=== PATIENT | female | born 1990 | race Caucasian/White ===

== ENCOUNTER 2016-11-25 22:36 | Emergency (ER) | payer OTHER ==
--- NOTE | 2016-11-25 22:55 | PDOC ---
History of Present Illness - General History Source: Patient Exam Limitations: No Limitations - History of Present Illness Initial Comments: 11/25/16 23:39 The patient is a 26 year old female and presenting with her family, with no significant past medical history, who presents to the emergency department with generalized weakness and shortness of breath. She notes that her friend 1 week ago from meningitis (11/19/2016) and is afraid that she may have been exposed to bacterial meningitis. She denies any other kind of symptoms. The patient denies chest pain, shortness of breath, headache and dizziness. Denies fever, chills, nausea, vomit, diarrhea and constipation. Denies dysuria, frequency, urgency and hematuria. Allergies: Peanuts Past surgical history: None reported Social history: Alcohol use. Cigarette use and marijuana use <Fernando Christianson - Last Filed: 11/25/16 23:39> <Jennifer Salguero - Last Filed: 11/26/16 00:25> - General Chief Complaint: Weakness Stated Complaint: WEAKNESS Time Seen by Provider: 11/25/16 22:54 Past History <Fernando Christianson - Last Filed: 11/25/16 23:39> <Jennifer Salguero - Last Filed: 11/26/16 00:25> - Past Medical History Allergies/Adverse Reactions: Allergies Allergy/AdvReac Type Severity Reaction Status Date / Time peanut Allergy Verified 11/25/16 22:56 Home Medications: Ambulatory Orders Ciprofloxacin/Ciprofloxa HCl [Cipro Xr 500 mg Tablet] 500 mg PO ONCE 11/25/16 Review of Systems - Review of Systems Able to Perform ROS?: Yes Comments:: 11/25/16 23:40 GENERAL/CONSTITUTIONAL: +Generalized weakness. No fever or chills HEAD, EYES, EARS, NOSE AND THROAT: No change in vision. No ear pain or discharge. No sore throat. CARDIOVASCULAR: +Shortness of breath. No chest pain RESPIRATORY: No cough, wheezing, or hemoptysis. GASTROINTESTINAL: No nausea, vomiting, diarrhea or constipation. GENITOURINARY: No dysuria, frequency, or change in urination. MUSCULOSKELETAL: No joint or muscle swelling or pain. No neck or back pain. SKIN: No rash NEUROLOGIC: No headache, vertigo, loss of consciousness, or change in strength/ sensation. ENDOCRINE: No increased thirst. No abnormal weight change HEMATOLOGIC/LYMPHATIC: No anemia, easy bleeding, or history of blood clots. ALLERGIC/IMMUNOLOGIC: No hives or skin allergy. <BraxtonFernando murphy Elizabeth - Last Filed: 11/25/16 23:39> *Physical Exam - Vital Signs Last Vital Signs Temp Pulse Resp BP Pulse Ox 97.9 F 76 16 124/80 100 11/25/16 22:54 11/25/16 22:54 11/25/16 22:54 11/25/16 22:54 11/25/16 22:54 - Physical Exam Comments: 11/25/16 23:40 GENERAL: Awake, alert, and fully oriented, in no acute distress HEAD: No signs of trauma, normocephalic, atraumatic EYES: PERRLA, EOMI, sclera anicteric, conjunctiva clear ENT: Auricles normal inspection, hearing grossly normal, nares patent, oropharynx clear without exudates. Moist mucosa NECK: Normal ROM, supple, no lymphadenopathy, JVD, or masses LUNGS: No distress, speaks full sentences, clear to auscultation bilaterally HEART: Regular rate and rhythm, normal S1 and S2, no murmurs, rubs or gallops, peripheral pulses normal and equal bilaterally. ABDOMEN: Soft, nontender, normoactive bowel sounds. No guarding, no rebound. No masses EXTREMITIES: Normal inspection, Normal range of motion, no edema. No clubbing or cyanosis. NEUROLOGICAL: Cranial nerves II through XII grossly intact. Normal speech, normal gait, no focal sensorimotor deficits SKIN: Warm, Dry, normal turgor, no rashes or lesions noted. <Fernando Christianson - Last Filed: 11/25/16 23:39> ED Treatment Course - LABORATORY CBC & Chemistry Diagram: 11/25/16 23:10 11/25/16 23:10 - ADDITIONAL ORDERS Additional order review: Laboratory Results 11/25/16 11/25/16 23:00 23:00 Urine Color Straw Urine Appearance Clear Urine pH 6.0 Ur Specific Deputy 1.005 Urine Protein Negative Urine Glucose (UA) Negative Urine Ketones Trace H Urine Blood 1+ H Urine Nitrite Negative Urine Bilirubin Negative Urine Urobilinogen Negative Ur Leukocyte Esterase Negative Urine RBC <1 Urine WBC <1 Ur Epithelial Cells Rare Urine Bacteria Rare Urine Mucus Rare Urine HCG, Qual Negative 11/25/16 23:10 RBC 4.49 MCV 89.2 MCHC 34.3 RDW 13.4 MPV 7.2 L Neutrophils % 70.3 Lymphocytes % 19.3 Monocytes % 8.8 Eosinophils % 1.2 Basophils % 0.4 <Fernando Christianson - Last Filed: 11/25/16 23:39> - LABORATORY CBC & Chemistry Diagram: 11/25/16 23:10 11/25/16 23:10 <Jennifer Salguero - Last Filed: 11/26/16 00:25> Medical Decision Making - Medical Decision Making 11/25/16 23:46 26 yo female came in to ER because of friend of hers last Friday from meningitis and she is worried she may have meningitis -she did receive rafamcin last week - she does NOT have fever, headache,no chill, no neck stiffness, no photophobia , no nausea,no cough,no sore throat -on exam she has no rashes,no neck stiffness -labs reviewed , unremarkable us neg neg preg test cbc= 10 11/26/16 00:20 <Jennifer Salguero - Last Filed: 11/26/16 00:25> *DC/Admit/Observation/Transfer - Attestations Scribe Attestion: 11/25/16 23:40 Documentation prepared by Fernando Christianson, acting as medical service technician for Jennifer Salguero MD <Fernando Christianson - Last Filed: 11/25/16 23:39> <Jennifer Salguero - Last Filed: 11/26/16 00:25> Diagnosis at time of Disposition: Weakness - Discharge Dispostion Disposition: HOME Condition at time of disposition: Stable - Patient Instructions Printed Discharge Instructions: DI for Fatigue Additional Instructions: Try to get 8 hours of sleep nightly Return if you develop high fever,headache,vomiting or sore throat - Post Discharge Activity Work/School Note: Back to Work
[2016-11-25 23:08] VITALS: BP 124/80; PULSE 76; TEMP 97.9; BMI 30.9
[2016-11-25 23:12] LABS: URINE APPEARANCE CLEAR; URINE BILIRUBIN NEGATIVE (NEGATIVE); URINE COLOR STRAW; URINE GLUCOSE (UA) NEGATIVE (NEGATIVE); URINE KETONE TRACE (NEGATIVE); URINE LEUK ESTERASE NEGATIVE (NEGATIVE); URINE NITRITE NEGATIVE (NEGATIVE); URINE PROTEIN NEGATIVE (NEGATIVE); URINE UROBILINOGEN NEGATIVE E.U./dl (0.2-1.0)
[2016-11-25 23:14] LABS: URINE BLOOD 1+ (NEGATIVE)
[2016-11-25 23:15] LABS: URINE BACTERIA RARE /hpf (NONE SEEN); URINE MUCUS RARE; URINE RBC <1 /hpf (0-3); URINE WBC <1 /hpf (3-5)
[2016-11-25 23:26] LABS: BASOPHIL 0.4 % (0-2.0); EOSINOPHIL 1.2 % (0-4.5); MCH 30.6 pg (25.7-33.7); MCHC 34.3 g/dl (32.0-36.0); MEAN CELL VOLUME 89.2 fl (80-96); MEAN PLT VOLUME 7.2 fl (7.5-11.1); NEUTROPHILS 70.3 % (42.8-82.8); PLATELET COUNT 284 K/MM3 (134-434); RDW 13.4 % (11.6-15.6); WHITE BLOOD COUNT 10.4 K/mm3 (4.0-10.0)
[2016-11-26 00:19] LABS: ANION GAP 10 (8-16); CO2 26 mmol/L (21-32); CREATININE 0.8 mg/dL (0.55-1.02); GLUCOSE,RANDOM 93 mg/dL (74-106); TOT PROT 7.7 g/dl (6.4-8.2)
[2016-11-26 00:20] LABS: BILIRUBIN,TOTAL 0.6 mg/dL (0.2-1.0); SGOT/AST 19 U/L (15-37); SGPT/ALT 22 U/L (12-78)
[2016-11-26 00:21] LABS: ALK PHOS 71 U/L (45-117)
== END 2016-11-26 00:31 | disposition home or self-care (01) ==
LOC: JER 22:36
DX: R53.1 Weakness (principal)
CPT/HCPCS: 36415; 80053; 81003; 81015; 84703; 85025; 99281-25